=== PATIENT | male | born 1990 | race African-American/Black ===

== ENCOUNTER 2021-12-12 07:20 | Emergency (ER) | payer SELFPAY ==
[~2021-12-12] VITALS: Ht 182.9 cm; Wt 169.0 kg
[2021-12-12] MEDS ORDERED: ASPIRIN CHEWABLE 81 MG TABLET. PO ONE (07:30)
[2021-12-12] MEDS ORDERED: METOPROLOL TARTRATE 5 MG/5 ML VIAL. IV ONE ×3 (07:30→09:00)
--- NOTE | 2021-12-12 07:33 | PHYS DOC ---
Past History Past Medical History: A-Fib, Hypertension Adult General HPI HPI Patient is a 31-year-old male presenting via POV for A. fib. This is an acute on chronic issue. States he has history of hypertension and proximal miserable A. fib with last episode approximately 2 years ago requiring ER visit. States at that time that precipitating event was waking up from sleep gasping from air, he was treated in emergency room and followed up with PCP and cardiology team in outpatient setting. He has not been on any anticoagulants or required any rate control given full conversion with medical intervention provided at last ER visit. Reports symptom onset was yesterday evening while at rest, felt palpitations and accelerated heart rate. He slept poorly overnight as a result and ongoing symptoms prompted him to come in for evaluation today. Denies any medication use, no tobacco alcohol or drug use. He is not vaccinated against COVID-19 Review of Systems Review of Systems Fourteen body systems of review of systems have been reviewed. See HPI for pertinent positives and negative responses, other john all other systems are negative, non-pertinent or non-contributory Physical Exam Physical Exam Constitutional: Well developed, well nourished and morbidly obese, no acute distress, non-toxic appearance. HENT: Normocephalic, atraumatic, bilateral external ears normal, oropharynx mo ist, no oral exudates, nose normal. Eyes: PERRLA, EOMI, conjunctiva normal, no discharge. Neck: Normal range of motion, no tenderness, supple, no stridor. Cardiovascular: Heart rate tachycardic with it regular rhythm, no murmurs rubs or gallops Lungs & Thorax: Bilateral breath sounds clear to auscultation Abdomen: Bowel sounds normal, soft, no tenderness, no masses, no pulsatile masses. Nonsurgical abdomen, no peritoneal signs Skin: Warm, dry, no erythema, no rash. Back: No tenderness, no CVA tenderness. Extremities: No tenderness, no cyanosis, no clubbing, ROM intact, no edema. Neurologic: Alert and oriented X 3, grossly normal motor & sensory function, no focal deficits noted. Psychologic: Affect normal, judgement normal, mood normal. Current Patient Data Vital Signs Vital Signs Date Time Temp Pulse Resp B/P (MAP) Pulse Ox O2 Delivery O2 Flow Rate FiO2 12/12/21 07:38 98.5 167 16 141/93 (109) 99 Room Air Vital Signs Date Time Temp Pulse Resp B/P (MAP) Pulse Ox O2 Delivery O2 Flow Rate FiO2 12/12/21 07:54 145 172/113 12/12/21 07:38 98.5 16 99 Room Air Lab Results Laboratory Tests Test 12/12/21 07:30 White Blood Count 12.5 x10^3/uL Red Blood Count 5.18 x10^6/uL Hemoglobin 15.3 g/dL Hematocrit 45.2 % Mean Corpuscular Volume 87 fL Mean Corpuscular Hemoglobin 30 pg Mean Corpuscular Hemoglobin Concent 34 g/dL Red Cell Distribution Width 13.7 % Platelet Count 348 x10^3/uL Neutrophils (%) (Auto) 55 % Lymphocytes (%) (Auto) 35 % Monocytes (%) (Auto) 8 % Eosinophils (%) (Auto) 2 % Basophils (%) (Auto) 0 % Neutrophils # (Auto) 6.9 x10^3uL Lymphocytes # (Auto) 4.3 x10^3/uL Monocytes # (Auto) 1.0 x10^3/uL Eosinophils # (Auto) 0.2 x10^3/uL Basophils # (Auto) 0.0 x10^3/uL Prothrombin Time 10.2 SEC Prothromb Time International Ratio 1.0 Activated Partial Thromboplast Time 27 SEC D-Dimer (Sheila) 0.36 mg/L Sodium Level 137 mmol/L Potassium Level 4.5 mmol/L Chloride Level 103 mmol/L Carbon Dioxide Level 24 mmol/L Anion Gap 10 Blood Urea Nitrogen 14 mg/dL Creatinine 0.9 mg/dL Estimated GFR (Cockcroft-Gault) 120.7 Glucose Level 134 mg/dL Calcium Level 8.9 mg/dL Magnesium Level 2.1 mg/dL Troponin I High Sensitivity 17 ng/L [id number] Natriuretic Peptide 92 pg/mL Ethyl Alcohol Level < 10 mg/dL Current Medications Medications (Trade) Dose Ordered Sig/Ruth Route PRN Reason Start Time Stop Time Status Last Admin Dose Admin Aspirin (Aspirin Chewable) 324 mg 1X ONCE PO 12/12/21 07:30 12/12/21 07:47 DC 12/12/21 07:51 Metoprolol Tartrate (Lopressor Vial) 5 mg 1X ONCE IV 12/12/21 07:30 12/12/21 07:47 DC 12/12/21 07:54 Metoprolol Tartrate (Lopressor Vial) 5 mg 1X ONCE IV 12/12/21 08:00 12/12/21 08:04 DC 12/12/21 08:39 Metoprolol Tartrate (Lopressor Vial) 5 mg 1X ONCE IV 12/12/21 09:00 12/12/21 09:01 DC 12/12/21 09:23 Metoprolol Tartrate (Lopressor) 25 mg 1X ONCE PO 12/12/21 11:00 12/12/21 11:01 DC EKG EKG EKG ordered and interpreted by myself at 0733 hrs. as atrial fibrillation at 119 bpm, unremarkable intervals, left axis deviation, no STEMI Radiology/Procedures Radiology/Procedures EXAMINATION: XR CHEST 1V CLINICAL HISTORY: Atrial fibrillation. EXAM DATE/TIME: 12/12/2021 7:32 AM COMPARISON: None FINDINGS: Lines, Tubes, and Devices: None. Cardiomediastinal Silhouette: Within normal limits. Lungs and Pleura: No evidence of focal airspace consolidation or pleural effusion. Pulmonary vasculature unremarkable. Probable overlying soft tissue attenuation in the lower lung zones. Bones and Soft Tissues: No acute osseous abnormality. IMPRESSION: No evidence of acute cardiopulmonary abnormality. Electronically signed by: Jeramy Ramirez DO (12/12/2021 8:03 AM) [facility] Heart Score C/O Chest Pain: No HEART Score for Chest Pain: HEART Score for Chest Pain Response (Comments) Value History Moderately Suspicious 1 ECG Nonspecific Repolarizatio 1 Age < 45 0 Risk Factors 1 or 2 Risk Factors 1 Troponin < Normal Limit 0 Total 3 Risk Factors: Risk Factors: DM, Current or recent (<one month) smoker, HTN, HLP, family history of CAD, obesity. Risk Scores: Risk Factors: DM, Current or recent (<one month) smoker, HTN, HLP, family history of CAD, obesity. Course & Med Decision Making Course & Med Decision Making Airway patent, breathing unlabored, IV access and vitals obtained concerning for tachycardia and hypertension HPI physical exam and comprehensive ER work-up obtained and nonconcerning for any emergent or surgical issues Patient presents with initially reported history of paroxysmal A. fib with last ER visit 2 years ago but reports he experiences these episodes several days out of the week that typically self resolve. He has been lost to outpatient follow- up X3 5 mg IV Lopressor administered after risk-benefit discussion had with patient against rhythm control given chronicity of atrial fibrillation greater than 48 hours. Rate optimally controlled without conversion I reviewed case with cardiology midlevel. Discussed that patient's etiology of atrial fibrillation likely luminary hypertension versus sleep apnea in origin which should be addressed in outpatient setting. Joint decision made to start p.o. beta-gregory and aspirin I disclosed conversation in entirety of ER work-up with patient who is amenable to plan of care. 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 Due to the fact that the patient required a significant amount of one on one physician - patient contact time, ordering and review of studies, arranging urgent treatment with development of a management plan, evaluation of patients response to treatment with frequent reassessments, and discussions with other providers this patient required 35 minutes of critical care time. Critical care time was indicated due to the inherent instability and/or potential for instability in this patient. The critical care time that is allocated to this patient is above and beyond any time spent on any other billable procedures performed on this patient. Dragon Disclaimer Dragon Disclaimer This electronic medical record was generated, in whole or in part, using a voice recognition dictation system. Departure Departure: Impression: Primary Impression: A-fib Additional Impression: Morbid obesity Disposition: HOME / SELF CARE / HOMELESS Condition: STABLE Patient Instructions: Atrial Fibrillation Additional Instructions: As discussed prior to ER departure, your atrial fibrillation was rate controlled with beta-gregory medications. You were subsequently transferred to by mouth beta-blockers at the recommendations of on-call industrial maintenance tech service. You should continue to take this in addition to daily 81 mg aspirin and follow-up with your primary care physician and outpatient cardiology team. If any concerning signs or symptoms present prior to outpatient follow-up please do not hesitate to come back for repeat evaluation. It was a pleasure to take care of you and I wish you the best going forward Scripts Metoprolol Tartrate (METOPROLOL TARTRATE) 25 Mg Tablet 1 TAB PO BID for atrial fib, #180 TAB 1 Refill Prov: SHIRLENE DOS SANTOS DO 12/12/21 Problem Qualifiers SHIRLENE DOS SANTOS DO Dec 12, 2021 07:33
[2021-12-12 07:54] LABS: BASO % 0 % (0-3); EOS # 0.2 x10^3/uL (0.0-0.7); EOS % 2 % (0-3); HEMATOCRIT 45.2 % (39.0-53.0); HEMOGLOBIN 15.3 g/dL (13.0-17.5); LYMPH # 4.3 x10^3/uL (1.0-4.8); LYMPH % 35 % (24-48); MEAN CORPUSCULAR HEMOGLOBIN 30 pg (25-35); MEAN CORPUSCULAR HGB CONC 34 g/dL (31-37); MEAN CORPUSCULAR VOLUME 87 fL (79-100); MONO % 8 % (0-9); NEUT # 6.9 x10^3uL (1.8-7.7); NEUT % 55 % (31-73); PLATELET COUNT 348 x10^3/uL (140-400); RED BLOOD COUNT 5.18 x10^6/uL (4.30-5.70); RED CELL DISTRIBUTION WIDTH 13.7 % (11.5-14.5); WHITE BLOOD COUNT 12.5 x10^3/uL (4.0-11.0)
[2021-12-12 08:01] LABS: CALCIUM 8.9 mg/dL (8.5-10.1); CREATININE 0.9 mg/dL (0.7-1.3); GFR 120.7; POTASSIUM 4.5 mmol/L (3.5-5.1)
--- NOTE | 2021-12-12 08:05 | RAD ---
EXAMINATION: XR CHEST 1V CLINICAL HISTORY: Atrial fibrillation. EXAM DATE/TIME: 12/12/2021 7:32 AM COMPARISON: None FINDINGS: Lines, Tubes, and Devices: None. Cardiomediastinal Silhouette: Within normal limits. Lungs and Pleura: No evidence of focal airspace consolidation or pleural effusion. Pulmonary vasculat ure unremarkable. Probable overlying soft tissue attenuation in the lower lung zones. Bones and Soft Tissues: No acute osseous abnormality. IMPRESSION: No evidence of acute cardiopulmonary abnormality. Electronically signed by: Jeramy Ramirez DO (12/12/2021 8:03 AM) [facility]
[2021-12-12 08:14] LABS: MAGNESIUM 2.1 mg/dL (1.8-2.4)
[2021-12-12] MEDS ORDERED: METO25TA4 PO (10:49)
[2021-12-12] MEDS ORDERED: METOPROLOL TART IMMED RELEASE 25 MG TABLET. PO ONE (11:00)
[2021-12-12 11:29] VITALS: BP 125/61
--- NOTE | 2021-12-12 12:04 | EKG ---
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
== END 2021-12-12 11:52 | disposition home or self-care (01) ==
LOC: ER 07:20
DX: I48.91 Unspecified atrial fibrillation (principal); I10 Essential (primary) hypertension; E66.01 Morbid (severe) obesity due to excess calories; Z68.43 Body mass index [BMI] 50.0-59.9, adult
CPT/HCPCS: 36415; 71045; 80048; 83735; 83880; 84443; 84484; 85025; 85379; 85610; 85730; 93005; 96374; 96376; 99285; G0480; J3490